=== PATIENT | female | born 1975 | race Caucasian/White ===

== ENCOUNTER 2020-01-06 12:55 | Emergency (ER) | payer OTHER ==
[~2020-01-06] VITALS: Ht 170.2 cm; Wt 90.7 kg
--- NOTE | 2020-01-06 13:53 | Diagnostic Imaging Report ---
Exam: Right/Left Hand 2 views. History: Tingling in fourth and fifth finger, right hand injury Comparison: None. Findings: 2 views of the right hand. There is normal bone mineralization. Negative for acute, displaced fracture or dislocation. The joint spaces are normal. No abnormal soft tissue calcification or mass. No cystic erosive changes.No soft tissue swelling. Impression: 1. No acute abnormalities. Signed by: Dr. Ahmet Orozco M.D. on 01/06/2020 1:49 PM
--- NOTE | 2020-01-06 13:54 | Diagnostic Imaging Report ---
Exam: right forearm 2 views. History: Right forearm trauma Comparison: None. Findings: There is normal bone mineralization. No acute, displaced fracture or dislocation. Joint spaces preserved. No anterior or posterior fat pad elevation. No abnormal soft tissue calcification or soft tissue defect. No soft tissue swelling. Impression: 1. No acute abnormalities. Signed by: Dr. Ahmet Orozco M.D. on 01/06/2020 1:50 PM
== END 2020-01-06 14:09 | disposition home or self-care (01) ==
LOC: FSED 12:55
DX: S50.11XA Contusion of right forearm, initial encounter (principal); W51.XXXA Accidental striking against or bumped into by another person, initial encounter; Y92.008 Other place in unspecified non-institutional (private) residence as the place of occurrence of the external cause
CPT/HCPCS: 99283